=== PATIENT | female | born 1945 | race Caucasian/White ===

== ENCOUNTER 2024-08-11 09:31 | Emergency (ER) | payer MEDICARE, OTHER, SELFPAY ==
[2024-08-11 09:39] VITALS: BP 184/84; PULSE 69; RESP 14; TEMP 36.3; O2SAT 96; BMI 30.7
--- NOTE | 2024-08-11 10:26 | ED.GENADULT ---
HPI - General Adult General Chief complaint: Extremity Injury, Upper Stated complaint: left shoulder pain 5 days Time Seen by Provider: 08/11/24 09:47 Source: patient Mode of arrival: Ambulatory History of Present Illness HPI narrative: 78-year-old woman with a history of prior myocardial infarction, describes pain associated with that as lower central chest and distinctly different from current pain. Self-described very active lifestyle and goes to the gym at least 5 days a week. A lots of upper body work as well as water aerobics and water walking. Comes in complaining of left shoulder pain ongoing for the last 4 days. She points mainly to her left trapezius muscle. She did have a massage yesterday which did not seem to make much of a difference. She does not describe neck pain or headaches. She notes that abduction of the left arm we will make it hurt worse into the trapezius area but not causing specific shoulder tenderness. There has been no recent traumas, she is not having any chest pain, dyspnea, palpitations, nausea, vomiting Related Data Allergies Allergy/AdvReac Type Severity Reaction Status Date / Time Sulfa (Sulfonamide Allergy Unknown Unverified 08/11/24 09:39 Antibiotics) Review of Systems Review of Systems Narrative: Pertinent positive and negative findings as per HPI Patient History Medical History (Updated 08/11/24 @ 10:32 by Argentina Mason MD) Coronary artery disease Social History Smoking Status: Unknown if ever smoked Smoking Status: Unknown if ever smoked Exam Initial Vital Signs Initial Vital Signs: Vital Signs Temperature 97.3 F L 08/11/24 09:39 Pulse Rate 69 08/11/24 09:39 Respiratory Rate 14 08/11/24 09:39 Blood Pressure 184/84 H 08/11/24 09:39 Pulse Oximetry 96 08/11/24 09:39 Oxygen Delivery Method Room Air 08/11/24 09:39 General: Alert appropriate in no acute distress Respiratory: Able to speak in full sentences, no obvious respiratory distress Skin: No obvious rashes, warm and dry Neurologic: Grossly intact no obvious asymmetries or abnormalities Psych: appropriate insight and affect, cooperative Extremity: Spasm and tenderness recreating the pain of which she complaints, left trapezius muscle. She does not have any midline cervical spine pain, no paracervical tenderness and no reproducible tenderness with compression and range of motion at the neck. With passive abduction, she has some tenderness into the trapezius muscle but not into the shoulder joint itself. No tenderness over the rotator cuff and no tenderness with internal external rotation at the shoulder. Course Vital Signs Vital signs: Vital Signs - 8 hr 08/11/24 09:39 Temperature 97.3 F L Pulse Rate 69 Respiratory Rate 14 Blood Pressure 184/84 H Pulse Oximetry 96 Oxygen Delivery Method Room Air Medical Decision Making MDM Narrative Medical decision making narrative: 78-year-old woman with left shoulder pain. Possibilities include musculoskeletal abnormalities, radicular pain, rotator cuff injury, coronary syndrome. On physical exam most likely explanation for her pain is trapezius muscle tension, I do not appreciate cervical involvement, rotator involvement or actual show or joint involvement. We discussed holding off on upper arm workout for this week to see if this may simply be an overuse injury with the time she is currently spinning in the gym. She is placed in a sling, left side. Once it is tight enough to fully support her arm she finds that it does help with the pain. She is neurovascularly intact pre and post placement There was no indication for additional imaging or workup at this time. She is safe for discharge Discharge Plan Departure Patient Disposition: Home Clinical Impression: Strain of cervical portion of left trapezius muscle Instructions: DI for Cervical Muscle Strain Activity Restrictions/Additional Instructions: Thank you for coming in today Based on your physical exam, I believe you have strained your trapezius muscle, the area of your shoulder were you are most sore. I am not seeing any indication that this is a pinched nerve from your neck, rotator cuff injury or any problem with the shoulder joint itself. Please continue the [employer] as it has been helping Use the sling that we provided if this is also helping Over the next week I am going to recommend that you avoid upper arm exercises or weight lifting. Please feel free to continue walking or other aerobic pursuits that do not involve arm movement. If you find that you are getting worse or develop any new symptoms, please feel free to return to the emergency department for further evaluation. Referrals: Vance Montoya MD [Primary Care Provider, Internal Medicine] Stand Alone Forms: Patient Portal/API
== END 2024-08-11 10:41 | disposition home or self-care (01) ==
PROVIDERS: Emergency Provider Emergency Medicine; PCP Internal Medicine
DX: S46.812A Strain of other muscles, fascia and tendons at shoulder and upper arm level, left arm, initial encounter (principal); X58.XXXA Exposure to other specified factors, initial encounter
CPT/HCPCS: 99282